=== PATIENT | female | born 1980 | race African-American/Black ===

== ENCOUNTER 2019-05-26 18:31 | Emergency (ER) | payer OTHER ==
[~2019-05-26] VITALS: Ht 157.5 cm; Wt 95.3 kg
[2019-05-26] MEDS ORDERED: ACETAMINOPHEN-1 EAC1 PO (19:27)
[2019-05-26] MEDS ORDERED: ERYTHROMYCIN E3.5 G2 INTRAOCULR (19:27)
[2019-05-26 19:43] VITALS: BP 130/88
== END 2019-05-26 19:44 | disposition home or self-care (01) ==
LOC: M.ERS 18:31
DX: H57.12 Ocular pain, left eye (principal)

== ENCOUNTER 2019-07-20 16:07 | Emergency (ER) | payer OTHER ==
[~2019-07-20] VITALS: Ht 160 cm; Wt 95.3 kg
[~2019-07-20 16:07] MED LIST: ACETAMINOPHEN-1 EAC1 PO; ERYTHROMYCIN E3.5 G2 INTRAOCULR
[2019-07-20] MEDS ORDERED: AFRIN15 ML NS (16:53)
[2019-07-20] MEDS ORDERED: MEDROLDOSEPACK PO (16:53)
[2019-07-20] MEDS ORDERED: AMOXICILLIN 50500 MG PO (16:53)
[2019-07-20 17:04] VITALS: BP 110/78
== END 2019-07-20 17:05 | disposition home or self-care (01) ==
LOC: M.ERS 16:07
DX: J01.00 Acute maxillary sinusitis, unspecified (principal); Z98.890 Other specified postprocedural states

== ENCOUNTER 2020-01-20 03:20 | Emergency (ER) | payer OTHER ==
[~2020-01-20] VITALS: Ht 160 cm; Wt 82.6 kg
[~2020-01-20 03:20] MED LIST changes: +AFRIN15 ML NS; +AMOXICILLIN 50500 MG PO; +MEDROLDOSEPACK PO
[2020-01-20] MEDS ORDERED: ASA81BEC PO (03:33)
[2020-01-20] MEDS ORDERED: HYDROCODON-ACE1 EAC7 PO (03:38)
[2020-01-20] MEDS ORDERED: IBUPROFEN 800800 MG PO (03:38)
[2020-01-20] MEDS ORDERED: PENICILLIN VK500 MG PO (03:38)
[2020-01-20 03:57] VITALS: BP 166/98
== END 2020-01-20 03:57 | disposition home or self-care (01) ==
LOC: M.ERS 03:20
DX: S02.5XXA Fracture of tooth (traumatic), initial encounter for closed fracture (principal); R59.1 Generalized enlarged lymph nodes; X58.XXXA Exposure to other specified factors, initial encounter; Y93.89 Activity, other specified; Y92.89 Other specified places as the place of occurrence of the external cause; Y99.8 Other external cause status

== ENCOUNTER 2021-01-25 19:02 | Inpatient (IN) | payer OTHER ==
[~2021-01-25] VITALS: Ht 152.4 cm; Wt 96.2 kg
[~2021-01-25 19:02] MED LIST changes: +ASA81BEC PO; +HYDROCODON-ACE1 EAC7 PO; +IBUPROFEN 800800 MG PO; +PENICILLIN VK500 MG PO
[2021-01-25 19:14] VITALS: BP 125/77
[2021-01-25] MEDS ORDERED: ENBRACE HR SOF1 EACH PO (19:17)
[2021-01-25] MEDS ORDERED: VITAMIN C100 MG PO (19:17)
[2021-01-25 19:37] LABS: ABSOLUTE BASOPHILS 0.1 thou/uL (0.0-0.2); ABSOLUTE EOSINOPHILS 0.1 thou/uL (0.0-0.7); ABSOLUTE LYMPHOCYTES 1.6 thou/uL (0.8-5.3); ABSOLUTE MONOCYTES 0.7 thou/uL (0.0-1.2); ABSOLUTE NEUTROPHILS 8.4 thou/uL (1.6-8.1); BASOPHILS 0.7 %; EOSINOPHILS 1.3 %; HEMOGLOBIN 12.7 gm/dL (12.0-15.0); LYMPHOCYTES 14.9 %; MCHC 32.6 g/dL (28.0-37.0); MCV 92.1 fL (80.0-100.0); MONOCYTES 6.7 %; NUCLEATED RBCS 0 /100WBC; PLATELET COUNT* 288 thou/uL (150-400); POLYS 76.4 %; RBC 4.24 mil/uL (4.20-5.00); RDW-CV 13.8 % (10.5-14.5)
[2021-01-25 19:48] LABS: CALCIUM 8.9 mg/dL (8.5-10.1); CREATININE 0.9 mg/dL (0.6-1.3); POTASSIUM 3.9 mmol/L (3.5-5.1)
[2021-01-25 19:52] LABS: ALBUMIN 3.3 g/dL (3.4-5.0); TOTAL BILIRUBIN 0.5 mg/dL (<0.1-1.0); TOTAL PROTEIN 8.1 g/dL (6.4-8.2)
[2021-01-25 21:33] LABS: URINE BILIRUBIN NEGATIVE (Negative); URINE BLOOD TRACE (Negative); URINE CLARITY CLEAR; URINE COLOR YELLOW; URINE GLUCOSE-RANDOM NEGATIVE (Negative); URINE KETONES NEGATIVE (Negative); URINE LEUKOCYTES-REFLEX NEGATIVE (Negative); URINE NITRITE-REFLEX NEGATIVE (Negative); URINE PROTEIN TRACE (Negative); URINE UROBILINOGEN 0.2 E.U./dl (0.2-1.0)
[2021-01-25 23:30] VITALS: BP 104/57; BP 112/77
[2021-01-26 08:00] VITALS: BP 111/49
--- NOTE | 2021-01-26 09:59 | EKG ---
[place] [address] ELECTROCARDIOGRAM REPORT Name: TOSHIA LÓPEZ Room: [address] ADM IN R.#: [id number] Admission: 01/25/21 Attend Phys: Jad Hoffman, Discharge: Date of : 78 Date of Service: 01/25/212013 Report #: [id number] THIS REPORT FOR: //name// [facility] ED Test Date: 2021-01-25 Test Time: 20:14:35 Pat Name: TOSHIA LÓPEZ Department: Room: [facility] Gender: F Java Lead Engineer: ARMANDO : 1980 Requested By: Lauren Bella Order Number: [id number] MD: Antolin Ulrich Measurements Intervals [place] Rate: 75 P: 46 AK: 146 QRS: 28 QRSD: 87 T: 19 QT: 391 QTc: 437 Interpretive Statements Sinus rhythm Low voltage, precordial leads No previous ECG available for comparison Electronically Signed On 01-26-2021 9:59:32 CDT by Antolin Ulrich [email or web address] <ELECTRONICALLY SIGNED> By: Antolin Ulrich MD, [facility] 01/26/21 0959 13 13 Antolin Ulrich MD, [facility] /EPI
[2021-01-26 15:59] VITALS: BP 108/54
[2021-01-26 20:17] VITALS: BP 113/72
[2021-01-27 04:27] LABS: ABSOLUTE BASOPHILS 0.1 thou/uL (0.0-0.2); ABSOLUTE EOSINOPHILS 0.3 thou/uL (0.0-0.7); ABSOLUTE LYMPHOCYTES 1.6 thou/uL (0.8-5.3); ABSOLUTE MONOCYTES 0.5 thou/uL (0.0-1.2); ABSOLUTE NEUTROPHILS 3.5 thou/uL (1.6-8.1); BASOPHILS 1.1 %; EOSINOPHILS 4.3 %; HEMATOCRIT 34.3 % (37.0-47.0); HEMOGLOBIN 11.3 gm/dL (12.0-15.0); LYMPHOCYTES 27.7 %; MCH 30.3 pg (26.0-34.0); MCHC 32.8 g/dL (28.0-37.0); MCV 92.4 fL (80.0-100.0); MONOCYTES 8.6 %; MPV 9.3 fl. (7.2-11.1); NUCLEATED RBCS 0 /100WBC; PLATELET COUNT* 243 thou/uL (150-400); POLYS 58.3 %; RBC 3.72 mil/uL (4.20-5.00); RDW-CV 13.3 % (10.5-14.5); WBC 5.9 thou/uL (4.0-11.0)
[2021-01-27 04:31] LABS: CALCIUM 8.8 mg/dL (8.5-10.1); CREATININE 1.2 mg/dL (0.6-1.3); POTASSIUM 4.1 mmol/L (3.5-5.1)
[2021-01-27] MEDS ORDERED: CIPRO500 M1 PO (07:49)
[2021-01-27] MEDS ORDERED: ONDANSETRON ODT4 MG PO (07:49)
[2021-01-27] MEDS ORDERED: FLAGYL500 M1 PO (07:49)
[2021-01-27 07:55] VITALS: BP 141/85
[2021-01-27 09:48] VITALS: BP 141/85
[2021-01-27 10:05] VITALS: BP 141/85
== END 2021-01-27 10:45 | disposition home or self-care (01) | DRG 392 ==
LOC: M.ERS 19:02 → M.TBA-ER 21:16 → M.ORTHSURG 21:16
PROVIDERS: Nurse Practitioner Family; ADMIT Internal Medicine; ATTEND Internal Medicine
DX: K57.32 Diverticulitis of large intestine without perforation or abscess without bleeding (principal); Z68.41 Body mass index [BMI] 40.0-44.9, adult; F17.210 Nicotine dependence, cigarettes, uncomplicated; K21.9 Gastro-esophageal reflux disease without esophagitis; K52.9 Noninfective gastroenteritis and colitis, unspecified; Z20.822 Contact with and (suspected) exposure to COVID-19; Z79.899 Other long term (current) drug therapy; Z72.89 Other problems related to lifestyle; E66.9 Obesity, unspecified